=== PATIENT | female | born 2000 | race Two or more races ===

== ENCOUNTER 2023-10-31 13:46 | Emergency (ER) | payer BC ==
[~2023-10-31] VITALS: Ht 160 cm; Wt 56.7 kg
[2023-10-31 13:58] VITALS: BP 111/66; TEMP 98.2
[2023-10-31] MEDS ORDERED: CLIN300C12 PO (14:41)
[2023-10-31] MEDS ORDERED: IBUP-1955 PO (14:41)
[2023-10-31 14:48] VITALS: O2SAT 98
== END 2023-10-31 14:49 | disposition home or self-care (01) ==
LOC: ER 14:01
DX: L03.114 Cellulitis of left upper limb (principal); M25.512 Pain in left shoulder; Z79.899 Other long term (current) drug therapy